=== PATIENT | male | born 1955 | race Caucasian/White ===

== ENCOUNTER → 2018-02-03 | Outpatient (CLI) | payer OTHER ==
[~2018-02-03] MED LIST: ASPI-715 PO; FLUT16SP19 NS; RANI150C17 PO; SIMV-42 PO; SIMV-54 PO; SULF-198 PO; TRIA5T TOP
== END ==
LOC: EDSTATUS 02-02 08:59 → AUD 08:00
PROVIDERS: ATTEND Nurse Practitioner Primary Care
DX: H91.90 Unspecified hearing loss, unspecified ear (principal)
CPT/HCPCS: 92557; 92567

== ENCOUNTER → 2018-03-11 | Outpatient (CLI) | payer OTHER ==
--- NOTE | 2018-03-11 12:01 | RADIOLOGY IMAGING REPORT ---
FACILITY: [facility] [place] PATIENT NAME: Gamal Jung : 1955 MR: [id number] V: [id number] EXAM DATE: ORDERING PHYSICIAN: KATHLEEN CASTILLO TECHNOLOGIST: Location: [facility] Patient: Gamal Jung : 1955 Visit/Account:[id number] Date of Sevice: 03/11/2018 Exam type: CHEST PA AND LAT History: Chronic cough x1 year Comparison: None. Findings: The lungs are free of acute effusions, infiltrates or edema. Right axilla is normal in size. The tr achea is in midline. Visualized bones are unremarkable for age. IMPRESSION: 1. No acute cardiac pulmonary process is seen Report Dictated By: Payal Wood MD at 03/11/2018 11:56 AM Report E-Signed By: Payal Wood MD at 03/11/2018 11:57 AM WSN:[email or web address]
== END ==
LOC: RAD 10:46
PROVIDERS: ATTEND Nurse Practitioner Primary Care
DX: R05 Cough (principal)
CPT/HCPCS: 71046